=== PATIENT | male | born 1990 | race Two or more races ===

== ENCOUNTER 2021-02-26 23:36 | Emergency (ER) | payer OTHER ==
[~2021-02-26] VITALS: Ht 175.3 cm; Wt 88.6 kg
--- NOTE | 2021-02-27 00:10 | RAD ---
XR KNEE _4 VIEWS WITH PATELLA_LT 02/26/2021 11:47 PM INDICATION: Pain, swelling COMPARISON: None available. TECHNIQUE: 4 views of the left knee are provided. FINDINGS/ IMPRESSION: There is no acute fracture or dislocation. There is remodeling of the lateral patellar facet which co uld reflect sequela of prior fracture or dislocation. Joint spaces are maintained. Bone mineralizatio n is within normal limits. Regional soft tissues are within normal limits. There is no soft tissue ga s or osseous erosion. No radiopaque foreign body. No significant knee joint effusion. Electronically signed by: Miriam Franco MD (02/27/2021 12:08 AM) [facility]
--- NOTE | 2021-02-27 00:29 | PHYS DOC ---
Past History Past Surgical History: No Surgical History Alcohol Use: None General Adult EDM: Chief Complaint: KNEE INJURY HPI: HPI: 30-year-old male presents with left knee pain. The patient was running a couple weeks ago when he stepped in a hole and fell to the ground. He twisted his knee but is not exactly sure how. It was quite painful but he was able to walk. The patient has been doing light duty and trying to limit his strenuous use of that leg. He has been limping the last 2 weeks. The pain improved, but never went away. He has an ACFT test coming up. He started running again today and had just a significant pain is 2 weeks ago. He feels like the knee is swollen. The pain is mostly along the medial joint line and the medial aspect of the knee. It does not feel like it is getting give out. He denies any other injuries or complaints at this time. Review of Systems: Review of Systems: Constitutional: Denies fever or chills Eyes: Denies change in visual acuity HENT: Denies nasal congestion or sore throat Respiratory: Denies cough or shortness of breath Cardiovascular: Denies chest pain or edema GI: Denies abdominal pain, nausea, vomiting, bloody stools or diarrhea : Denies dysuria Musculoskeletal: left knee pain Integument: Denies rash Neurologic: Denies headache, focal weakness or sensory changes Endocrine: Denies polyuria or polydipsia Lymphatic: Denies swollen glands Psychiatric: Denies depression or anxiety Allergies: Allergies: Allergies Coded Allergies Type Severity Reaction Last Updated Verified No Known Drug Allergies 02/26/21 No Physical Exam: PE: Constitutional: Well developed, well nourished, no acute distress, non-toxic appearance. [] HENT: Normocephalic, atraumatic, bilateral external ears normal, oropharynx moist, no oral exudates, nose normal. [] Eyes: PERRLA, EOMI, conjunctiva normal, no discharge. [] Neck: Normal range of motion, no tenderness, supple, no stridor. [] Cardiovascular:Heart rate regular rhythm, no murmur [] Lungs & Thorax: Bilateral breath sounds clear to auscultation [] Abdomen: Bowel sounds normal, soft, no tenderness, no masses, no pulsatile masses. [] Skin: Warm, dry, no erythema, no rash. [] Back: No tenderness, no CVA tenderness. [] Extremities: Tenderness along the medial joint line, tenderness over the medial collateral ligament, no significant swelling. [] Neurologic: Alert and oriented X 3, normal motor function, normal sensory function, no focal deficits noted. [] Psychologic: Affect normal, judgement normal, mood normal. [] Current Patient Data: Vital Signs: Vital Signs Date Time Temp Pulse Resp B/P (MAP) Pulse Ox O2 Delivery O2 Flow Rate FiO2 02/26/21 23:43 98.6 113 16 134/91 (105) 100 Room Air EKG: EKG: [] Radiology/Procedures: Radiology/Procedures: [] Impressions: XR KNEE _4 VIEWS WITH PATELLA_LT 02/26/2021 11:47 PM INDICATION: Pain, swelling COMPARISON: None available. TECHNIQUE: 4 views of the left knee are provided. FINDINGS/ IMPRESSION: There is no acute fracture or dislocation. There is remodeling of the lateral patellar facet which could reflect sequela of prior fracture or dislocation. Joint spaces are maintained. Bone mineralization is within normal limits. Regional soft tissues are within normal limits. There is no soft tissue gas or osseous erosion. No radiopaque foreign body. No significant knee joint effusion. Electronically signed by: Jr Franco MD (02/27/2021 12:08 AM) [facility] DICTATED AND SIGNED BY: JR FRANCO MD DATE: 02/27/21 0007 CC: MARTÍN SHIPMAN DO; KENDRICK RIVERA DO ~MTH0 0 Heart Score: C/O Chest Pain: N/A Risk Factors: Risk Factors: DM, Current or recent (<one month) smoker, HTN, HLP, family history of CAD, obesity. Risk Scores: Score 0 - 3: 2.5% MACE over next 6 weeks - Discharge Home Score 4 - 6: 20.3% MACE over next 6 weeks - Admit for Clinical Observation Score 7 - 10: 72.7% MACE over next 6 weeks - Early Invasive Strategies Course & Med Decision Making: Course & Med Decision Making Pertinent Labs and Imaging studies reviewed. (See chart for details) The patient is tender along the medial collateral ligament. I would have expected with his rest and conservative treatment the medial collateral ligament strain would have improved by now. I am concerned that he may have a medial meniscal tear given his exquisite tenderness and the fact that the pain never really went away. I have advised the patient that he should seek specialist referral with orthopedics and likely get an MRI. He states verbal understanding. I will put him on limited duty. He is stable for discharge at this time. [] Shankar Disclaimer: Shankar Disclaimer: This electronic medical record was generated, in whole or in part, using a voice recognition dictation system. Departure Departure: Impression: Primary Impression: Acute medial meniscal injury of knee Qualified Codes: S83.8X2A - Sprain of other specified parts of left knee, i nitial encounter Additional Impression: Medial collateral ligament sprain of knee Qualified Codes: S83.412A - Sprain of medial collateral ligament of left knee, initial encounter Disposition: HOME / SELF CARE / HOMELESS Condition: STABLE Referrals: KENDRICK RIVERA DO (PCP) Patient Instructions: Meniscus Tear with Phase I Rehab-SportsMed Additional Instructions: Given the patient's injury being more than 2 weeks old and still having a significant out of pain I believe he needs an orthopedic referral and an MRI for further evaluation. I recommend light duty and no running or ACFT until cleared by orthopedics. MARTÍN SHIPMAN DO Feb 27, 2021 00:29
[2021-02-27 00:34] VITALS: BP 130/88
== END 2021-02-27 00:37 | disposition home or self-care (01) ==
LOC: ER 23:36
DX: S83.412A Sprain of medial collateral ligament of left knee, initial encounter (principal); X50.1XXA Overexertion from prolonged static or awkward postures, initial encounter; Y93.89 Activity, other specified; Y92.89 Other specified places as the place of occurrence of the external cause; Y99.8 Other external cause status
CPT/HCPCS: 73564; 99283-25

== ENCOUNTER 2021-08-24 09:15 | Emergency (ER) | payer OTHER ==
[~2021-08-24] VITALS: Ht 175.3 cm; Wt 88.6 kg
[2021-08-24 09:27] VITALS: BP 135/93
--- NOTE | 2021-08-24 09:39 | PHYS DOC ---
Past History Past Surgical History: No Surgical History Alcohol Use: None General Adult EDM: Chief Complaint: FLANK PAIN HPI: HPI: 30-year-old male presents with left flank pain. Patient started to have pain around 9:00 last night. It was intermittent, sharp pain. He was able to sleep. This morning he still having sharp pain. He had to go to a dental appointment first thing this morning but then came into the hospital because of this pain. It is exacerbated by bouncing in the car on his way here. He is in the [employer] and thought it might be musculoskeletal but ibuprofen has not helped at all. He is concerned that something else going on. No history of kidney stones. Denies hematuria or increased urinary frequency. Denies fever or chills. Review of Systems: Review of Systems: Constitutional: Denies fever or chills Eyes: Denies change in visual acuity HENT: Denies nasal congestion or sore throat Respiratory: Denies cough or shortness of breath Cardiovascular: Denies chest pain or edema GI: Denies abdominal pain, nausea, vomiting, bloody stools or diarrhea : Denies dysuria Musculoskeletal: Left flank pain Integument: Denies rash Neurologic: Denies headache, focal weakness or sensory changes Endocrine: Denies polyuria or polydipsia Lymphatic: Denies swollen glands Psychiatric: Denies depression or anxiety Allergies: Allergies: Allergies Coded Allergies Type Severity Reaction Last Updated Verified No Known Drug Allergies 02/26/21 No Physical Exam: PE: Constitutional: Well developed, well nourished, no acute distress, non-toxic appearance. [] HENT: Normocephalic, atraumatic, bilateral external ears normal, oropharynx moist, no oral exudates, nose normal. [] Eyes: PERRLA, EOMI, conjunctiva normal, no discharge. [] Neck: Normal range of motion, no tenderness, supple, no stridor. [] Cardiovascular: Heart rate regular rhythm, no murmur [] Lungs & Thorax: Bilateral breath sounds clear to auscultation [] Abdomen: Bowel sounds normal, soft, no tenderness, no masses, no pulsatile masses. [] Skin: Warm, dry, no erythema, no rash. [] Back: No tenderness, left CVA tenderness. [] Extremities: No tenderness, no cyanosis, no clubbing, ROM intact, no edema. [] Neurologic: Alert and oriented X 3, normal motor function, normal sensory function, no focal deficits noted. [] Psychologic: Affect normal, judgement normal, mood normal. [] EKG: EKG: [] Radiology/Procedures: Radiology/Procedures: [] Heart Score: C/O Chest Pain: N/A Risk Factors: Risk Factors: DM, Current or recent (<one month) smoker, HTN, HLP, family history of CAD, obesity. Risk Scores: Score 0 - 3: 2.5% MACE over next 6 weeks - Discharge Home Score 4 - 6: 20.3% MACE over next 6 weeks - Admit for Clinical Observation Score 7 - 10: 72.7% MACE over next 6 weeks - Early Invasive Strategies Course & Med Decision Making: Course & Med Decision Making Pertinent Labs and Imaging studies reviewed. (See chart for details) The patient's urinalysis is positive for blood but negative for infection. His CT does show a 5 mm stone. This may or may not pass. His creatinine is currently 1.6. I have no previous for comparison. I will place the patient on [place] for pain and Flomax. I have encouraged him to drink a lot of water. I have also advised that he find a urologist compatible with his insurance and make a preliminary appointment in case this does not pass. He is stable for discharge at this time. [] Shankar Disclaimer: Shankar Disclaimer: This electronic medical record was generated, in whole or in part, using a voice recognition dictation system. Departure Departure: Impression: Primary Impression: Kidney stone on left side Disposition: HOME / SELF CARE / HOMELESS Condition: STABLE Referrals: KENDRICK RIVERA DO (PCP) Patient Instructions: Kidney Stones, [id number] Scripts Tamsulosin Hcl (FLOMAX) 0.4 Mg Cap.er.24h 1 CAP PO DAILY for kidney stone for 14 Days, #14 CAP Prov: MARTÍN SHIPMAN DO 08/24/21 Hydrocodone/Acetaminophen (Hydrocodone-Acetamin 5-325 mg) 1 Each Tablet 1 EACH PO Q4-6HRS PRN for PAIN, #10 TAB Prov: MARTÍN SHIPMAN DO 08/24/21 MARTÍN SHIPMAN DO August 24, 2021 09:39
--- NOTE | 2021-08-24 09:53 | RAD ---
Examination: CT of the abdomen pelvis without contrast HISTORY: History of left flank pain COMPARISON: None TECHNIQUE: Axial CT images of the abdomen pelvis were performed without contrast. Coronal and sagitta l reformats are performed. Exposure: One or more of the following individualized dose reduction techniques were utilized for thi s examination: 1. Automated exposure control 2. Adjustment of the mA and/or kV according to patient size 3. Use of iterative reconstruction technique FINDINGS: Minimal bibasilar lung atelectasis. No evidence of free air identified in the abdomen.The evaluation of the solid organs is limited due to lack of IV contrast. The evaluation of bowel is limited due to lack of oral contrast. Mild decreased attenuation noted in the liver likely hepatic steatosis. The gallbladder is mildly dis tended biliary spleen, adrenals grossly appears unremarkable. The gallbladder is mildly distended wit h visualized pancreas grossly appears unremarkable. The small bowel is nondilated. The appendix is no rmal. There is a 1 cm calculus identified in the left kidney. There is mild left-sided hydronephrosis identified. There is a 5 mm calculus identified in the mid left ureter causing mild left-sided hydro nephrosis. There is mild fat stranding identified about the left kidney and proximal left ureter Urinary bladder is mildly distended No evidence of lytic bony destructive lesion IMPRESSION: 1. 5 mm calculus identified in the mid left ureter causing mild left-sided hydronephrosis. There is mild fat stranding identified about the left kidney and proximal left ureter could be due to back pre ssure or pyelonephritis. Correlate with lab values. 2. 1 cm calculus identified in the left kidney. 3. Hepatic steatosis. Electronically signed by: Roland Calvillo MD (08/24/2021 9:51 AM) [id number]
[2021-08-24 10:16] LABS: BACTERIA,URINE 0 /HPF (0-FEW); CLARITY,URINE CLOUDY; COLOR,URINE YELLOW; GLUCOSE,URINE NEG (NEG); NITRITE,URINE NEG (NEG); RBC,URINE >40 /HPF (0-2); SQUAMOUS EPITHELIAL CELL,UR FEW /LPF; UROBILINOGEN,URINE 0.2 mg/dL (0.2 mg/dL); WBC,URINE OCC /HPF (0-4)
[2021-08-24] MEDS ORDERED: MORPHINE SULFATE 2 MG/ML DISP.SYRIN. IV ONE (10:45)
[2021-08-24] MEDS ORDERED: ONDANSETRON PF 4 MG/2 ML VIAL. IVP ONE (10:45)
[2021-08-24] MEDS ORDERED: HYDROcodone/APAP 5/325MG 1 TAB TABLET PO ONE (10:45)
[2021-08-24] MEDS ORDERED: IV NORMAL SALINE 1,000ML 1,000 ML IV ONE (10:45)
[2021-08-24 11:20] LABS: BASO # 0.1 x10^3/uL (0.0-0.2); BASO % 1 % (0-3); EOS % 0 % (0-3); HEMATOCRIT 42.4 % (39.0-53.0); LYMPH # 1.6 x10^3/uL (1.0-4.8); LYMPH % 15 % (24-48); MEAN CORPUSCULAR HEMOGLOBIN 31 pg (25-35); MEAN CORPUSCULAR HGB CONC 33 g/dL (31-37); MEAN CORPUSCULAR VOLUME 93 fL (79-100); MONO # 0.8 x10^3/uL (0.0-1.1); MONO % 7 % (0-9); NEUT # 8.7 x10^3uL (1.8-7.7); NEUT % 77 % (31-73); PLATELET COUNT 260 x10^3/uL (140-400); RED BLOOD COUNT 4.57 x10^6/uL (4.30-5.70); RED CELL DISTRIBUTION WIDTH 13.9 % (11.5-14.5); WHITE BLOOD COUNT 11.3 x10^3/uL (4.0-11.0)
[2021-08-24 11:40] LABS: CREATININE 1.6 mg/dL (0.7-1.3); POTASSIUM 4.6 mmol/L (3.5-5.1)
[2021-08-24 11:45] LABS: ALBUMIN 4.2 g/dL (3.4-5.0); ALBUMIN/GLOBULIN RATIO 1.1 (1.0-1.7); TOTAL BILIRUBIN 0.6 mg/dL (0.2-1.0); TOTAL PROTEIN 7.9 g/dL (6.4-8.2)
[2021-08-24] MEDS ORDERED: HYDR-2759 PO (11:58)
[2021-08-24] MEDS ORDERED: TAMS0.4C97 PO (11:58)
== END 2021-08-24 12:15 | disposition home or self-care (01) ==
LOC: ER 09:15
DX: N13.2 Hydronephrosis with renal and ureteral calculous obstruction (principal)
CPT/HCPCS: 36415; 74176; 80053; 81001; 85025; 96361; 96374; 96375; 99284; J2270; J2405; J7030

== ENCOUNTER 2021-08-28 08:16 | Emergency (ER) | payer OTHER ==
[~2021-08-28] VITALS: Ht 175.3 cm; Wt 88.6 kg
[~2021-08-28 08:16] MED LIST: HYDR-2759 PO; TAMS0.4C97 PO
--- NOTE | 2021-08-28 08:25 | PHYS DOC ---
Past History Past Surgical History: No Surgical History Alcohol Use: None Adult General Chief Complaint Chief Complaint: FLANK PAIN [facility] HPI Patient is a 30-year-old male presenting to the emergency department for continued left flank pain in the setting of being diagnosed with a kidney stone 4 days ago. I reviewed the imaging results and appears that he had CT findings as below. Patient had a creatinine of 1.6. He was discharged with a trial of passage with [place] and Flomax. He says he has overall been feeling better when he takes the pain medication but he has since run out of his 10 pills of Depew. Patient has not attempted to get any urology follow-up to this point. Patient says that he is here as he wants a refill of his pain medication to see if he can still try and attempt to pass the stone at home. Patient denies fevers chills vomiting. He is in no acute distress with normal vital signs other than hypertension noted. 1. 5 mm calculus identified in the mid left ureter causing mild left-sided hydronephrosis. There is mild fat stranding identified about the left kidney and proximal left ureter could be due to back pressure or pyelonephritis. Correlate with lab values. 2. 1 cm calculus identified in the left kidney. 3. Hepatic steatosis. Review of Systems Review of Systems Constitutional: Denies fever or chills [] Eyes: Denies change in visual acuity, redness, or eye pain [] HENT: Denies nasal congestion or sore throat [] Respiratory: Denies cough or shortness of breath [] Cardiovascular: No additional information not addressed in HPI [] GI: Denies abdominal pain, nausea, vomiting, bloody stools or diarrhea [] : Denies dysuria or hematuria [] Musculoskeletal: + back pain. No joint pain [] Integument: Denies rash or skin lesions [] Neurologic: Denies headache, focal weakness or sensory changes All other systems were reviewed and found to be within normal limits, except as documented in this note. Allergies Allergies Allergies Coded Allergies Type Severity Reaction Last Updated Verified No Known Drug Allergies 02/26/21 No Physical Exam Physical Exam Constitutional: Well developed, well nourished, no acute distress, non-toxic shelli earance. [] HENT: Normocephalic, atraumatic, bilateral external ears normal, oropharynx moist, no oral exudates, nose normal. [] Eyes: PERRLA, EOMI, conjunctiva normal, no discharge. [] Neck: Normal range of motion, no tenderness, supple, no stridor. [] Cardiovascular:Heart rate regular rhythm, no murmur [] Lungs & Thorax: Bilateral breath sounds clear to auscultation [] Abdomen: Bowel sounds normal, soft, no tenderness, no masses, no pulsatile masses. [] Skin: Warm, dry, no erythema, no rash. [] Back: No tenderness, no CVA tenderness. [] Extremities: No tenderness, no cyanosis, no clubbing, ROM intact, no edema. [] Neurologic: Alert and oriented X 3, normal motor function, normal sensory function, no focal deficits noted. [] EKG EKG [] Radiology/Procedures Radiology/Procedures [] Heart Score C/O Chest Pain: No Risk Factors: Risk Factors: DM, Current or recent (<one month) smoker, HTN, HLP, family history of CAD, obesity. Risk Scores: Risk Factors: DM, Current or recent (<one month) smoker, HTN, HLP, family history of CAD, obesity. Course & Med Decision Making Course & Med Decision Making Patient has improved creatinine level and his urinalysis shows small hematuria but no obvious signs of infection. I told patient generally of a patient returns with worsening pain from a kidney stone be transferred to a facility that can do stenting and other urologic procedures. There is no urologist here at [facility] and I told him he would have to transfer him and he does not want to be transferred rather he says that he wants to still attempt to pass a stone at home. Patient is aware of this recommendation and refused transfer so I will treat him supportively as an outpatient but told him he needs to follow-up with urologist either at [facility] or at an outside facility. Patient was told to drink plenty of fluids continue take the Flomax and he can come back to emergency department anytime with worsening pain fevers vomiting or other concerns or if he desires to be transferred to a facility with urology care. Patient aware and agreeable with plan and verbalized understanding of the above instructions. Dragon Disclaimer Dragon Disclaimer This electronic medical record was generated, in whole or in part, using a voice recognition dictation system. Departure Departure: Impression: Primary Impression: Left ureteral calculus Additional Impression: Failure of outpatient treatment Disposition: HOME / SELF CARE / HOMELESS Condition: STABLE Referrals: KENDRICK RIVERA DO (PCP) LYDIA CHAPA MD Patient Instructions: Kidney Stones, Xfxt-uv-[id number] Scripts Hydrocodone Bit/Acetaminophen (HYDROCODONE-APAP 5-325 ) 1 Each Tablet 1 TAB PO PRN Q6HRS PRN for PAIN, #16 TAB 0 Refills Prov: ANABEL VIDALES DO 08/28/21 Problem Qualifiers ANABEL VIDALES DO August 28, 2021 08:25
[2021-08-28] MEDS ORDERED: IV NORMAL SALINE 1,000ML 1,000 ML IV ONE (08:45)
[2021-08-28] MEDS ORDERED: KETOROLAC 15 MG/ML VIAL. IVP ONE (08:45)
[2021-08-28] MEDS ORDERED: HYDROcodone/APAP 5/325MG 1 TAB TABLET PO ONE (08:45)
[2021-08-28 09:00] LABS: BASO # 0.1 x10^3/uL (0.0-0.2); BASO % 1 % (0-3); EOS # 0.2 x10^3/uL (0.0-0.7); EOS % 3 % (0-3); HEMATOCRIT 42.4 % (39.0-53.0); HEMOGLOBIN 14.2 g/dL (13.0-17.5); LYMPH # 1.8 x10^3/uL (1.0-4.8); LYMPH % 30 % (24-48); MEAN CORPUSCULAR HEMOGLOBIN 31 pg (25-35); MEAN CORPUSCULAR HGB CONC 34 g/dL (31-37); MEAN CORPUSCULAR VOLUME 93 fL (79-100); MONO # 0.3 x10^3/uL (0.0-1.1); MONO % 5 % (0-9); NEUT # 3.6 x10^3uL (1.8-7.7); NEUT % 60 % (31-73); PLATELET COUNT 294 x10^3/uL (140-400); RED BLOOD COUNT 4.59 x10^6/uL (4.30-5.70); RED CELL DISTRIBUTION WIDTH 13.3 % (11.5-14.5)
[2021-08-28 09:05] LABS: CALCIUM 9.7 mg/dL (8.5-10.1); CREATININE 1.1 mg/dL (0.7-1.3); GFR 78.6; POTASSIUM 3.8 mmol/L (3.5-5.1)
[2021-08-28 09:11] LABS: ALBUMIN 3.9 g/dL (3.4-5.0); ALBUMIN/GLOBULIN RATIO 0.8 (1.0-1.7); TOTAL BILIRUBIN 0.4 mg/dL (0.2-1.0); TOTAL PROTEIN 8.5 g/dL (6.4-8.2)
[2021-08-28 09:15] LABS: CLARITY,URINE CLEAR; COLOR,URINE YELLOW; GLUCOSE,URINE NEG (NEG); NITRITE,URINE NEG (NEG); UROBILINOGEN,URINE 0.2 mg/dL (0.2 mg/dL)
[2021-08-28 09:16] LABS: BACTERIA,URINE FEW /HPF (0-FEW); SQUAMOUS EPITHELIAL CELL,UR FEW /LPF; WBC,URINE OCC /HPF (0-4)
[2021-08-28] MEDS ORDERED: HYDR-2155 PO (09:34)
[2021-08-28 09:40] VITALS: BP 135/88
== END 2021-08-28 09:40 | disposition home or self-care (01) ==
LOC: ER 08:16
DX: N13.2 Hydronephrosis with renal and ureteral calculous obstruction (principal)
CPT/HCPCS: 36415; 80053; 81001; 85025; 96361; 96374; 99283; J1885; J7030